=== PATIENT | female | born 1990 | race African-American/Black ===

== ENCOUNTER 2017-08-02 06:25 | Day surgery (SDC) | payer BC ==
[~2017-08-02] VITALS: Ht 172.7 cm; Wt 120.2 kg
--- NOTE | ~2017-08-02 | EGD ---
EGD REPORT [facility] [address] [place] [address] NAME: BONNY CORONEL : [birth year] STATUS : [place] [facility] [place] PAT#: [id number] AGE: 27 ADM/REG DATE : 08/02/17 MR#: [id number] REPORT SERV DATE: 08/02/17 DICTATED BY: MOHIT NULL DATE: 08/02/17 REPORT STATUS : Draft TRANSCRIBED BY: [facility] DATE: 08/02/17 Endoscopy Center Patient Name: Bonny Coronel Date of : 1990 Attending MD: MOHIT NULL, Procedure Date No Time: 08/02/2017 Procedure: Colonoscopy Indications: Abdominal pain, Chronic diarrhea, Rectal bleeding Referring MD: KIKE JOE Complications: No immediate complications. Estimated blood loss: None. Procedure: Pre-Anesthesia Assessment: - Prior to the procedure, a History and Physical was performed, and patient medications and allergies were reviewed. The patient's tolerance of previous anesthesia was also reviewed. The risks and benefits of the procedure and the sedation options and risks were discussed with the patient. All questions were answered, and informed consent was obtained. Prior Anticoagulants: The patient has taken no previous anticoagulant or antiplatelet agents. ASA Grade Assessment: III - A patient with severe systemic disease. After reviewing the risks and benefits, the patient was deemed in satisfactory condition to undergo the procedure. After I obtained informed consent, the scope was passed under direct vision. Throughout the procedure, the patient's blood pressure, pulse, and oxygen saturations were monitored continuously. The CF [id number] was introduced through the anus and advanced to the terminal ileum. The colonoscopy was performed with ease. The patient tolerated the procedure well. The quality of the bowel preparation was good. The ileocecal valve, appendiceal orifice, terminal ileum and rectum were photographed. Findings: The perianal exam was abnormal. Findings include a skin tag. The terminal ileum appeared normal. A few small-mouthed diverticula were found in the transverse colon and in the ascending colon. The exam was otherwise without abnormality on direct and retroflexion views. Biopsies were taken with a cold forceps from the entire colon for evaluation of microscopic colitis. Estimated blood loss: none. Impression: - Perianal skin tag found on perianal exam. EGD REPORT [address] [place]. [address] NAME: BONNY CORONEL : [birth year] STATUS : REG [facility]#: [id number] AGE: 27 ADM/REG DATE : 08/02/17 MR#: [id number] REPORT SERV DATE: 08/02/17 DICTATED BY: MOHIT NULL DATE: 08/02/17 REPORT STATUS : Draft TRANSCRIBED BY: [employer] [facility] DATE: 08/02/17 - The examined portion of the ileum was normal. - Diverticulosis in the transverse colon and in the ascending colon. - The examination was otherwise normal on direct and retroflexion views. Recommendation: - Patient has a contact number available for emergencies. The signs and symptoms of potential delayed complications were discussed with the patient. Return to normal activities tomorrow. Written discharge instructions were provided to the patient. - Follow a low FODMAP diet. - Discharge patient to home (with escort). - Continue present medications. - Await pathology results. - Repeat colonoscopy at age 48 years for routine colorectal cancer screening purposes. - Return to GI clinic to discuss pathology results with nurse practioner in 2-4 weeks. Procedure Code(s): --- Professional --- 20642, Colonoscopy, flexible, proximal to splenic flexure; with biopsy, single or multiple Diagnosis Code(s): --- Professional --- K64.4, Residual hemorrhoidal skin tags K57.30, Diverticulosis of large intestine without perforation or abscess without bleeding R10.9, Unspecified abdominal pain K52.9, Noninfective gastroenteritis and colitis, unspecified K62.5, Hemorrhage of anus and rectum CPT copyright 2013 [employer]. All rights reserved. The codes documented in this report are preliminary and upon cable rigger review may be revised to meet current compliance requirements. MOHIT NULL, 08/02/2017 9:26 AM This report has been signed electronically. Number of Addenda: 0 Note Initiated On: 08/02/2017 8:40 AM Scope Withdrawal Time 0 hours 9 minutes [address] [facility] [address] [place]. [address] NAME: BONNY CORONEL : [birth year] STATUS : [place] [facility] [place] PAT#: [id number] AGE: 27 ADM/REG DATE : 08/02/17 MR#: [id number] REPORT SERV DATE: 08/02/17 DICTATED BY: MOHIT NULL DATE: 08/02/17 REPORT STATUS : Draft TRANSCRIBED BY: [employer] DATE: 08/02/17 [address] [address]
--- NOTE | ~2017-08-02 | EGD ---
EGD REPORT [facility] [address] [address] NAME: BONNY CORONEL : [birth year] STATUS : REG [facility]#: [id number] AGE: 27 ADM/REG DATE : 08/02/17 MR#: [id number] REPORT SERV DATE: 08/02/17 DICTATED BY: MOHIT NULL DATE: 08/02/17 REPORT STATUS : Draft [facility]ANSCRIBED BY: [facility] DATE: 08/02/17 Endoscopy Center Patient Name: Bonny Coronel Date of : 1990 Attending MD: MOHIT NULL, Procedure Date No Time: 08/02/2017 Procedure: Upper GI endoscopy Indications: Abdominal pain, Dyspepsia, Heartburn, Diarrhea Referring MD: KIKE JOE Medicines: Propofol per Anesthesia Complications: No immediate complications. Estimated blood loss: None. Procedure: Pre-Anesthesia Assessment: - ASA Grade Assessment: III - A patient with severe systemic disease. After obtaining informed consent, the endoscope was passed under direct vision. Throughout the procedure, the patient's blood pressure, pulse, and oxygen saturations were monitored continuously. The GIF [id number] was introduced through the mouth, and advanced to the second part of duodenum. The upper GI endoscopy was accomplished with ease. The patient tolerated the procedure well. Findings: The examined esophagus was normal. The Z-line was found 40 cm from the incisors. Moderate inflammation characterized by congestion (edema), erosions and erythema was found in the gastric antrum. Biopsies were taken with a cold forceps for histology. Estimated blood loss: none. Diffuse mild inflammation characterized by congestion (edema) and erythema was found in the duodenal bulb. Biopsies were taken with a cold forceps for histology. Estimated blood loss: none. The 2nd part of the duodenum was normal. Impression: - Normal esophagus. - Z-line 40 cm from the incisors. - Gastritis. Biopsied. - Duodenitis. Biopsied. - Normal 2nd part of the duodenum. Recommendation: - Patient has a contact number available for emergencies. The signs and symptoms of potential delayed complications were discussed with the patient. Return to normal activities tomorrow. Written discharge instructions were provided to the patient. EGD REPORT [address] [place]. [address] NAME: BONNY CORONEL : [birth year] STATUS : [place] [facility] [place] [id number] AGE: 27 ADM/REG DATE : 08/02/17 MR#: [id number] REPORT SERV DATE: 08/02/17 DICTATED BY: MOHIT NULL DATE: 08/02/17 REPORT STATUS : Draft TRANSCRIBED BY: [facility] DATE: 08/02/17 - Discharge patient to home (with escort). - Follow a low FODMAP diet. - Follow an antireflux regimen. - No aspirin, ibuprofen, naproxen, or other non-steroidal anti-inflammatory drugs. - Use Questran at 1 packet (4 grams) PO BID. - Continue present medications. - Await pathology results. - Return to GI clinic to discuss pathology results with nurse practioner in 2-4 weeks. Procedure Code(s): --- Professional --- 43122, Esophagogastroduodenoscopy, flexible, transoral; with biopsy, single or multiple Diagnosis Code(s): --- Professional --- K29.70, Gastritis, unspecified, without bleeding K29.80, Duodenitis without bleeding R10.9, Unspecified abdominal pain K30, Functional dyspepsia R12, Heartburn R19.7, Diarrhea, unspecified CPT copyright 2013 [employer]. All rights reserved. The codes documented in this report are preliminary and upon tractor trailer mechanic review may be revised to meet current compliance requirements. MOHIT NULL, 08/02/2017 9:09 AM This report has been signed electronically. Number of Addenda: 0 Note Initiated On: 08/02/2017 8:46 AM Scope Withdrawal Time 0 hours 0 minutes 0 seconds [address] [place] [address]
[~2017-08-02 06:25] MED LIST: ALBUTEROL0.63 MG/3 INH; I40 PO; INVEGA9 MG PO; LEVOTHYROXIN200 MCG PO; ZANAFLEX2 MG PO; ZESTORETIC1 TA1 PO
== END 2017-08-02 23:59 | disposition home health service (06) ==
LOC: DMU 06:25
PROVIDERS: Internal Medicine Gastroenterology
PROC: 0DBE8ZX Excision of Large Intestine, Via Natural or Artificial Opening Endoscopic, Diagnostic (ICD-10-PCS; 2017-08-02)
PROC: 0DB68ZX Excision of Stomach, Via Natural or Artificial Opening Endoscopic, Diagnostic (ICD-10-PCS; principal; 2017-08-02 07:30)
PROC: 0DB98ZX Excision of Duodenum, Via Natural or Artificial Opening Endoscopic, Diagnostic (ICD-10-PCS; 2017-08-02 07:30)
DX: K29.80 Duodenitis without bleeding (principal); K57.30 Diverticulosis of large intestine without perforation or abscess without bleeding; K64.4 Residual hemorrhoidal skin tags; G47.33 Obstructive sleep apnea (adult) (pediatric); E03.9 Hypothyroidism, unspecified; E11.9 Type 2 diabetes mellitus without complications; K21.9 Gastro-esophageal reflux disease without esophagitis; K52.9 Noninfective gastroenteritis and colitis, unspecified; E66.01 Morbid (severe) obesity due to excess calories; I10 Essential (primary) hypertension; Z79.899 Other long term (current) drug therapy; Z90.49 Acquired absence of other specified parts of digestive tract; Z98.890 Other specified postprocedural states; Z99.89 Dependence on other enabling machines and devices; Z88.8 Allergy status to other drugs, medicaments and biological substances; Z87.891 Personal history of nicotine dependence
CPT/HCPCS: 84703; 88305